=== PATIENT | female | born 1945 | race Caucasian/White ===

== ENCOUNTER 2017-06-27 05:34 | Day surgery (SDC) | payer OTHER ==
[~2017-06-27] VITALS: Ht 157.5 cm; Wt 74.9 kg
[~2017-06-27 05:34] MED LIST: LEVO.1 PO; RIVA15 PO; RIVA20 PO; VITA20003 PO; ZOLO50TA PO
[2017-06-27] MEDS ORDERED: IOHEXOL 350 MG/ML 100 ML BTL (for Cath Lab) OTHER ONE (05:35)
[2017-06-27 06:00] VITALS: BP 136/74; PULSE 59; RESP 17; O2SAT 96
[2017-06-27] MEDS ORDERED: ASPIRIN 325 MG TAB PO SCH (06:00)
[2017-06-27] MEDS ORDERED: NS 1000P @30 MLS/HR (KVO) IV SCH (06:00)
[2017-06-27 06:29] LABS: BASOPHIL # 0.1 TH/MM3 (0-0.2); EOSINOPHIL # 0.3 TH/MM3 (0-0.4); EOSINOPHIL % 4.3 % (0.0-4.0); HEMATOCRIT 34.8 % (35.0-46.0); HEMOGLOBIN 11.7 GM/DL (11.6-15.3); LYMPH % 26.8 % (9.0-44.0); MEAN CELL VOLUME 96.9 FL (80.0-100.0); MEAN CORPUSCULAR HEMOGLOBIN 32.7 PG (27.0-34.0); MEAN CORPUSCULAR HGB CONC 33.8 % (32.0-36.0); MEAN PLATELET VOLUME 7.7 FL (7.0-11.0); MONOCYTE # 0.9 TH/MM3 (0-0.9); NEUT % 54.9 % (16.0-70.0); PLATELET COUNT 301 TH/MM3 (150-450); RED BLOOD COUNT 3.59 MIL/MM3 (4.00-5.30); RED CELL DISTRIBUTION WIDTH 14.2 % (11.6-17.2); WHITE BLOOD COUNT 7.3 TH/MM3 (4.0-11.0)
[2017-06-27 06:42] LABS: INTERNATIONAL NORMALIZED RATIO 0.9 RATIO; PROTHROMBIN TIME - PATIENT 9.6 SEC (9.8-11.6)
[2017-06-27 06:47] LABS: BICARBONATE 26.8 MEQ/L (21.0-32.0); CREATININE 0.64 MG/DL (0.50-1.00)
[2017-06-27] MEDS ORDERED: VITA2000 PO (06:48)
[2017-06-27] MEDS ORDERED: NEUR100C PO (06:48)
[2017-06-27] MEDS ORDERED: FOSA70TA PO (06:48)
[2017-06-27] MEDS ORDERED: LEVO50TA4 PO (06:48)
[2017-06-27] MEDS ORDERED: SERT-129 PO (06:48)
[2017-06-27] MEDS ORDERED: CALC1TAB12 PO (06:48)
[2017-06-27] MEDS ORDERED: ISOS30TA3 PO (06:48)
[2017-06-27] MEDS ORDERED: APIX2.5T PO (06:48)
[2017-06-27] MEDS ORDERED: NITR0.4S SL (06:48)
[2017-06-27] MEDS ORDERED: MAPA500C PO (06:48)
[2017-06-27] MEDS ORDERED: MIDAZOLAM HCL 2 MG/2 ML VIAL ONE ×2 (07:19→08:15)
[2017-06-27] MEDS ORDERED: HEPARIN-NS/PF FLUSH BAG 2,000 ML IV FLUSH ONE (07:19)
[2017-06-27] MEDS ORDERED: VERAPAMIL HCL 5 MG/2 ML VIAL ONE (07:22)
[2017-06-27] MEDS ORDERED: HEPARIN SODIUM - IV 10,000 UNITS/10 ML VIAL ONE (07:22)
[2017-06-27] MEDS ORDERED: NITROGLYCERIN INJ 5 ML ONE (07:22)
[2017-06-27] MEDS ORDERED: MIDAZOLAM HCL 2 MG/2 ML VIAL IV PUSH ONE ×3 (07:49→08:15)
[2017-06-27] MEDS ORDERED: HEPARIN SODIUM - IV 10,000 UNITS/10 ML VIAL IV PUSH ONE (08:18)
--- NOTE | 2017-06-27 08:52 | CATHPROC ---
[employer] HIS Report Study Information Study Number Admission Scheduled Start Study Start [id number] Jun 27 2017 5:34AM 06/27/2017 Jun 27 2017 7:16AM [place] [facility] Cardiac Catheterization Admit Source Facility Department Other [facility] - Spot Cleaner Physician and Clinical Staff Initial Dago Wiley Drafter MechanicalNelia Alexandra,MOISES Drafter Mechanical Tatiana Becker,MOISES Other Aparna Pretty,CUT ORDER HAND TECH2 Other Rajani Murrieta,MOISES Recorder Shavonne Candelaria,RT(R) (BS) Scrub Ofelia Sutton ,RT(R) Procedures Performed Procedure Location (Site) Vessel Name Angiogram LV LV Ventricle Coronary Angiograms LCA Left Coronary Coronary Angiograms RCA Right Coronary L Heart Cath Wire insertion Radial (left) Radial Art. Equipment Time Health Promotion Officer Description Size Mfg Part Number Used/Scraped TRANSDUCER, TRUWAVE [id number] 07:18 BLUM CORNELL * Used W/STOCKCOCK *[id number] 534-520T *[id number] [id number] *[id number] [id number] *[id number] [id number] *[id number] [id number] *[id number] 07:18 [employer]IN[employer] SYRINGE, ANGIOMAT 150ML 150ML *[id number] Used 2SUB [id number] 07:18 [employer] INDUSTRIES PACK, CCL CUSTOM * Used *[id number] 07:18 [employer] SUPPORT, ARTERIAL ADULT 91498 *[id number] Used [id number] 07:18 [employer] PACER PEN, SKIN DUAL W/ RULER * Used *[id number] BAND, RADIAL COMPRESSION TR [id number] 08:06 [employer] MEDICAL 24CM Used SHORT 24 *[id number] 07:18 [employer] MEDICAL WIRE, EXCHANGE 260CM 3MMJ 260CM Used *[id number] 07:18 [employer] MANIFOLD, 4 PORT * Used *[id number] 08:08 [employer] TUBING, HIGH PRESSURE 20" 20" Used *[id number] 07:18 [employer] OMNIPAQUE, 350 MG, 100ML 100ML [id number] Used [id number] 07:18 [employer] MEDICAL BLANKET,WARM AIR CCL * Used *[id number] 07:18 [employer] MEDICAL JELCO NEEDLE 4056 *[id number] Used SHEATH, FR6 TRANSRADIAL RM*[id number] 07:18 [employer] FR 6 Used SLENDER 10CM *[id number] 08:19 [employer] PRIME WIRE, VERRATA 185CM 185CM 42065 *[id number] Used 08:30 [employer] PRIME WIRE, VERRATA 185CM 185CM 63843 *[id number] Used Equipment Model, Serial, Lot Number and Expiration Data Description Model Number Serial Number Lot Number Expiration Date PRIME WIRE, VERRATA 185CM [id number] 05-14-2020 PRIME WIRE, VERRATA 185CM [id number] 05-14-2020 History: Current Medications Medication Dosage/Unit Route Frequency Last Date/Time Taken ELIQUIS Synthroid Imdur NTG SL Neurontin VITAMIN D Fosamax History: Allergies Allergy Reaction hydroxyzine zolpidem metoprolol Hypotension History: Risk Factors Family History of Hypertension Dyslipidemia Previous AK Previous Heart Failure Premature CAD Yes No Yes No No Prior Valve Prior PCI Prior CABG Surgery No No No Cerebrovascular Peripheral Artery Chronic Lung On Dialysis Diabetes Disease Disease Disease No No No No No History: Symptoms/Diagnosis Selection Items Chest pain Palpitations History: Stress Tests Stress or Imaging Studies Performed Yes Standard Exercise Stress Test No Stress Echo No Stress Test SPECT Stress Test SPECT Result Stress Test SPECT Ischemia Risk/Extent Yes Positive Low Stress Test CMR No Cardiac CTA Coronary Calcium Score No No History: Other Disease Selection Items Depression History: Other Current Smoker No Labs Hgb (g/dl) Hct (%) WBC (l/cumm) Platelets (thousands) 11.60-17.00 35.00-51.00 4.00-11.00 150.00-450.00 11.7 34.8 7.3 301 Glucose (mg/dl) BUN (mg/dl) Creatinine (mg/dl) BUN:Creatinine (1:x) 74.00-106.00 7.00-18.00 0.50-1.30 10.00-20.00 93 14 0.6 23.3 Na (meq/l) K (meq/l) 136.00-145.00 3.50-5.10 144 3.8 PT (sec) PTT (sec) INR (PTT:PT) 9.80-11.60 24.30-30.10 0.90-1.10 9.6 24.6 0.9 CPK-MB (ng/ML) 0.50-3.60 Not Drawn Medication Medication Total Dose (Bolus/Oral) Medication Total Dosage/Unit 1% XYLOCAINE 1 mL FENTANYL 50 mcg HEPARIN 2500 units NTG (IC) 150 mcg RADIAL COCKTAIL 1 units VERSED 3 mg Medications (Bolus/Oral) Medication Time Given Dosage/Unit Administered By Reason VERSED 06/27/2017 7:49:11 AM 1 mg Hesher, Tatiana 1 mg VERSED given in lab by Tatiana Becker RN in Right Antecubital via Peripheral IV. VERSED 06/27/2017 7:51:39 AM 1 mg Hesher, Tatiana 1 mg VERSED given in lab by Tatiana Becker, MOISES in Right Antecubital via Peripheral IV. 1% XYLOCAINE 06/27/2017 7:52:11 AM 1 mL Dago Clarke 1 mL 1% XYLOCAINE given in lab by Dago Clarke in Left Radial via Subcutaneous. Ntg 200mcg Verapamil 2.5mg Heparin RADIAL COCKTAIL 06/27/2017 7:54:29 AM 1 units Dago Clarke 2500U 1 units RADIAL COCKTAIL given in lab by Dago Clarke via Radial. Reason: Ntg 200mcg Heparin 2500U. FENTANYL 06/27/2017 7:56:10 AM 50 mcg Rosita, Tatiana 50 mcg FENTANYL given in lab by Tatiana Becker RN in Right Antecubital via Peripheral IV. VERSED 06/27/2017 8:15:05 AM 1 mg Rosita, Tatiana 1 mg VERSED given in lab by Tatiana Becker, MOISES in Right Antecubital via Peripheral IV. HEPARIN 06/27/2017 8:18:00 AM 2500 units Tatiana Becker 2500 units HEPARIN given in lab by Tatiana Becker, MOISES in Right Antecubital via Peripheral IV. NTG (IC) 06/27/2017 8:23:55 AM 150 mcg Dago Clarke 150 mcg NTG (IC) given in lab by Dago Clarke via Intra-coronary. Medication (Drip) Medication Time Given Dosage/Unit Concentration/Unit Diluent (ml) Solutio n IV Solutions 06/27/2017 7:20:38 AM 0 mL (IV) 500 NaCl .9 Patient arrived on IV Solutions in Right Antecubital via Peripheral IV. Pump/Drip Flow = 20 ml/hr usi ng NaCl .9. Initial Case Assessment Cardiovascular HR Rhythm NIBP Chest Pain 56 sb 130/62 0 Circulatory - Right Pulses Dorsalis Pedis Femoral 2 2 Scale (0,1,2,3,4,d) Circulatory - Left Pulses Dorsalis Pedis Femoral 2 2 Scale (0,1,2,3,4,d) Neurological State Oriented to time-place- Alert Moves all extremities person Respiration - General Respiration Rate SpO2 (%) (B/min) 16 94 Chronological Log Time Study Chronological Log 7:14:32 Patient arrived via Bed. 7:14:38 Patient Name, D.O.B, / Armband Verified By R.N. 7:16:43 Consent signed by the physician and the patient and verified by the Spot Cleaner staff. 7:16:44 Pre-op and post- op instructions given; patient acknowledges understanding of instructions. 7:16:46 Verbal Stimulation=2 Physical Stimulation=2 Airway=2 Respiration=2 TOTAL=8. (0=absent, 1=li mited, 2=present) 7:20:04 Presedation assessment performed by Spot Cleaner RN. 7:20:08 Allens test performed on the left radial and ulnar artery. 7:20:17 Patient has been NPO for More than 6Hrs. 7:20:19 Skin Breakdown-none 7:20:21 Delio Prominences Protected 7:20:23 A # 20 IV was noted in the Antecubital (left). Grade = patent 7:20:38 Patient arrived on IV Solutions in Right Antecubital via Peripheral IV. Pump/Drip Flow = 20 ml/hr using NaCl .9. Vitals capture started with the following parameters, Patient=Adult, Interval=5 min, Initial Pr jjrdlo=605 mmHg, 7:22:18 Deflation Rate=5 mmHg, Cuff placed on Unknown 7:22:23 History and physical on the chart or being dictated. 7:23:00 HR=52 bpm, OOJE=163/62 mmhg, SpO2=92 %, Resp=13 B/min Assessment: Initial Case, HR=56 BPM, Rhythm=sb, HAMD=692/62 mmhg, Chest Pain=0 Right Pulses: Brenden Ped=2, Femoral=2 7:24:18 Left Pulses: Brenden Ped=2, Femoral=2, Radial=2 Neurological: State=Alert, Ox3, BURDICK Respiration: Resp=16 B/min, SpO2=94 % 7:25:07 Reference ECG taken 7:27:57 HR=53 bpm, TKZZ=120/71 mmhg, SpO2=94.0 %, Resp=17 B/min, Pain=0, Jeff=10, Blue=2 7:33:02 HR=55 bpm, XMVC=437/64 mmhg, SpO2=92.0 %, Resp=22 B/min, Pain=0, Jeff=10, Blue=2 7:33:14 MD paged 7:37:59 HR=55 bpm, FQCZ=481/68 mmhg, SpO2=94.0 %, Resp=18 B/min, Pain=0, Jeff=10, Blue=2 7:38:11 Pressure channel 1 zeroed. 7:41:21 MD arrived 7:43:45 HR=65 bpm, MYKS=858/77 mmhg, SpO2=95.0 %, Resp=32 B/min, Pain=0, Jeff=10, Blue=2 7:48:38 HR=58 bpm, MTSK=020/69 mmhg, SpO2=93.0 %, Resp=20 B/min, Pain=0, Jeff=10, Blue=2 7:49:11 1 mg VERSED given in lab by Tatiana Becker RN in Right Antecubital via Peripheral IV. Time Out. Correct patient, correct procedure, correct physician, power injector not loaded with contrast with surgical 7:49:12 team present. Time Out Concurred by MD and individual staff in procedure. 7:49:38 Case Start 7:51:13 Power injector loaded my MM. 7:51:39 1 mg VERSED given in lab by Tatiana Becker, MOISES in Right Antecubital via Peripheral IV. 7:52:11 1 mL 1% XYLOCAINE given in lab by Dago Clarke in Left Radial via Subcutaneous. 7:53:00 HR=55 bpm, EXXL=092/59 mmhg, SpO2=89.0 %, Resp=25 B/min, Pain=0, Jeff=10, Blue=2 7:53:37 Access site was left Radial Artery. A SHEATH, FR6 TRANSRADIAL SLENDER 10CM FR 6 was advanced into the Radial (left) using the Abbey parra 7:53:47 technique. 7:54:29 1 units RADIAL COCKTAIL given in lab by Dago Clarke via Radial. Reason: Ntg 200mcg Heparin 2500U. 7:56:10 50 mcg FENTANYL given in lab by Tatiana Becker, RN in Right Antecubital via Peripheral IV. 7:57:59 HR=51 bpm, IRVZ=530/49 mmhg, SpO2=94.0 %, Resp=35 B/min, Pain=0, Jeff=10, Blue=2 A JL 4.0 INFINITI CATHETER FR 5 was advanced over a wire. OMNIPAQUE, 350 MG, 100ML 100ML was use d for 7:58:34 injections. Recorded Pressure: Ao, HR=51, Condition=Condition 1 8:00:20 (Aorta) Ao 86/44/62 8:00:29 The LCA was injected and visualized at various angles. OMNIPAQUE, 350 MG, 100ML 100ML used. After removing the current catheter a JR 4.0 INFINITI CATHETER FR 5 was advanced over a WIRE, EX CHANGE 260CM 8:02:40 3MMJ 260CM. 8:02:56 HR=50 bpm, ZCJO=750/49 mmhg, SpO2=94.0 %, Resp=20 B/min, Pain=0, Jeff=10, Blue=2 8:04:07 The RCA was injected and visualized at various angles. OMNIPAQUE, 350 MG, 100ML 100ML used. After removing the current catheter a PIGTAIL ANG. INFINITI CATHETER FR 5 was advanced over a WI RE, EXCHANGE 8:05:18 260CM 3MMJ 260CM. Recorded Pressure: LV, HR=66, Condition=Condition 1 8:07:47 (Left Ventricle) LV 112/4/14 8:07:57 HR=63 bpm, EUHU=764/54 mmhg, SpO2=94.0 %, Resp=15 B/min, Pain=0, Jeff=10, Blue=2 8:09:10 The LV was injected at 8 cc/sec for a total of 30. OMNIPAQUE, 350 MG, 100ML 100ML used. Recorded Pressure: LV, Ao, HR=63, Condition=Condition 1 8:09:41 (Left Ventricle) LV 108/5/12, (Aorta) Ao 114/50/78 8:10:11 MD reiewing films 8:12:58 HR=57 bpm, SFAV=437/56 mmhg, SpO2=93.0 %, Resp=22 B/min, Pain=0, Jeff=10, Blue=2 8:15:05 1 mg VERSED given in lab by Tatiana Becker, RN in Right Antecubital via Peripheral IV. After removing the current catheter a JR 4.0 INFINITI CATHETER FR 5 was advanced over a WIRE, EX CHANGE 260CM 8:16:49 3MMJ 260CM. 8:17:58 HR=56 bpm, BIBM=875/58 mmhg, SpO2=90.0 %, Resp=20 B/min, Pain=0, Jeff=10, Blue=2 8:18:00 2500 units HEPARIN given in lab by Tatiana Becker, RN in Right Antecubital via Peripheral I V. 8:22:23 A PRIME WIRE, VERRATA 185CM 185CM was inserted via Radial (left). 8:23:01 HR=57 bpm, BCQR=307/52 mmhg, SpO2=94.0 %, Resp=16 B/min, Pain=0, Jeff=10, Blue=2 8:23:55 150 mcg NTG (IC) given in lab by Dago Clarke via Intra-coronary. 8:25:11 Pressure channel 1 zeroed. 8:27:56 HR=55 bpm, NIBP=98/54 mmhg, SpO2=94.0 %, Resp=17 B/min, Pain=0, Jeff=10, Blue=2 8:28:41 Wire removed 8:29:08 Pressure channel 1 zeroed. 8:31:10 Pressure channel 1 zeroed. 8:31:55 A PRIME WIRE, VERRATA 185CM 185CM was inserted via Radial (left). 8:32:55 HR=54 bpm, OFAA=011/61 mmhg, SpO2=94.0 %, Resp=24 B/min, Pain=0, Jeff=10, Blue=2 8:33:38 Flow Wire was was placed in the RCA Mid. The IFR measures 1.02 Percent. 8:36:07 The PRIME WIRE, VERRATA 185CM 185CM was removed. 8:37:04 A WIRE, EXCHANGE 260CM 3MMJ 260CM was inserted via Radial (left). 8:37:13 Catheter was removed 8:37:14 Wire removed 8:37:20 Case End 8:37:29 Catheter(s) removed without difficulty 8:37:34 No case complications noted. 8:37:37 Bedside Report will be given. 8:37:43 A Left Heart Cath was performed. 8:37:58 HR=53 bpm, NXBG=003/62 mmhg, SpO2=94.0 %, Resp=18 B/min, Pain=0, Jeff=10, Blue=2 8:43:46 HR=50 bpm, ERNN=882/66 mmhg, SpO2=96.0 %, Resp=28 B/min, Pain=0, Jeff=10, Blue=2 Radial Compression Device Used. 9 mLs of air placed in BAND, RADIAL COMPRESSION TR SHORT 24 24C M. Affected 8:44:05 hand 95 % O2 saturation. 8:47:48 Vitals capture stopped. 8:49:46 Patient moved to access hospital daytoner End Study - Contrast Media Used In Study Contrast Total Opened (mL) Total Used (mL) Total Wasted (mL) Omnipaque 100 100 0 End Study - Maximum Contrast Load Max Contrast Load (mL) 624.2 End Study - Radiation Exposure Fluoro Time (minutes) 8.1 End Study - Sheaths Sheaths Pulled By Sheath Hold Time (min) Ofelia Sutton End Study - Patient Disposition Complications Transferred To Interventional Outcome No Spot Cleaner Holding No attempt made
[2017-06-27] MEDS ORDERED: MISC INFORMATION XX ONE (09:00)
[2017-06-27] MEDS ORDERED: SODIUM CHLORIDE 0.9% FLUSH 10 ML FLUSH IV FLUSH SCH (09:00)
[2017-06-27] MEDS ORDERED: SODIUM CHLORIDE 0.9% FLUSH 10 ML FLUSH IV FLUSH PRN (09:00)
--- NOTE | 2017-06-27 09:14 | MA ---
cc: Dago Clarke MD DATE: 06/27/2017 PROCEDURES PERFORMED: Left heart catheterization, left ventriculography, coronary angiography, flow reserve measurement of the right coronary artery. DESCRIPTION OF PROCEDURE: The patient was brought to the cardiac catheterization lab in a fasting state. The wrist and groin were prepped and draped in sterile fashion. Using 1% lidocaine for local anesthesia, a Terumo Slender Sheath was easily inserted into the left radial artery requiring only a single stick. Coronary angiography was then completed using a left 4 Mu for the left coronary artery and a right 4 Mu for the right coronary artery. An angled pigtail catheter was then used to measure left ventricular pressure followed by a pullback. The films were studied. Her right coronary artery stenosis appears to only be about 50%, but she has had very pronounced anginal symptoms lately, so I opted to go ahead and do a flow reserve measurement. I used a 6-Indian JR4 guiding catheter to engage the right coronary artery. Standard IFR was performed with a pressure wire and with intracoronary nitroglycerin administered prior. The IFR measurement was normal. The guiding catheter was removed. The sheath is to be removed with a Terumo band placed. She will be discharged home later today in good condition. FINDINGS: I. HEMODYNAMICS: Left ventricular pressure is 108/5 with an end-diastolic pressure of 12. Aortic pressure is 114/50 with a mean of 78. There was no gradient during pullback from the left ventricle to the aorta. II. LEFT VENTRICULOGRAPHY: Left ventriculography shows normal left ventricular function with an EF of 65%. III. CORONARY ANGIOGRAPHY: The left main coronary artery appears normal. The left anterior descending artery has some mild bridging in its mid-segment, but otherwise appears normal. Diagonal branches appear normal. The circumflex artery has about 10% distal irregularities. The right coronary artery is dominant. It has about a 20% proximal stenosis before the RV branch and about a 50% mid-stenosis after the RV branch. IFR measurement came back normal at 1. CONCLUSIONS: 1. Normal left ventricular function. 2. Normal hemodynamics. 3. Single vessel disease with a 50% mid-right coronary lesion. PLAN: Overall, I think her symptoms might be most consistent with coronary spasm so we will adjust her treatment for that. She will be discharged home later today. MD MARY Smith/MELCHOR , 08:45 AM , 09:13 AM
[2017-06-27] MEDS ORDERED: oxyCODONE/ACETAMINOPHEN 5 MG/325 MG TAB PO ONE (13:00)
--- NOTE | 2017-06-27 19:51 | EKG ---
Date Performed: 06/27/2017 Time Performed: 06:22:12 PTAGE: 71 years EKG: Sinus bradycardia. Inferior T wave changes are nonspecific Since the PREVIOUS TRACING , no significant change noted Borderline ECG PREVIOUS TRACIN @ 8 DOCTOR: Dago Clarke Interpretating Date/Time 06/27/2017 19:50:36
== END 2017-06-27 14:15 | disposition home or self-care (01) ==
LOC: HDOC 05:34 → HDIC 05:35 → HDOC 14:15
PROVIDERS: ATTEND Internal Medicine Cardiovascular Disease
DX: I25.111 Atherosclerotic heart disease of native coronary artery with angina pectoris with documented spasm (principal); R00.1 Bradycardia, unspecified; R00.2 Palpitations; E03.9 Hypothyroidism, unspecified; I27.82 Chronic pulmonary embolism; M81.0 Age-related osteoporosis without current pathological fracture; M19.90 Unspecified osteoarthritis, unspecified site; F32.9 Major depressive disorder, single episode, unspecified; Z79.02 Long term (current) use of antithrombotics/antiplatelets
CPT/HCPCS: 80048; 85025; 85610; 85730; 93005; 93458; 93571; 99152; 99153; C1769; C1893; J1644; J2250; J3010; J7030; Q9967